=== PATIENT | male | born 1995 | race Caucasian/White ===

== ENCOUNTER 2017-03-24 21:31 | Emergency (ER) | payer OTHER ==
[2017-03-24] MEDS ORDERED: Ketorolac Tromethamine 30 MG/ML VIAL ONE (21:47)
[2017-03-24] MEDS ORDERED: Ondansetron HCl/PF 4 MG/2 ML Vial ONE (21:47)
[2017-03-24 22:08] LABS: #Basophils 0.1 thou/uL (0.0-0.2); #Eosinphils 0.1 thou/uL (0.0-0.7); #Lymphocytes 2.8 thou/uL (1.20-3.40); #Monocytes 0.7 thou/uL (0.11-0.59); #Neutrophils 7.2 thou/uL (1.40-6.50); %Basophils 0.9 % (0.0-1.0); %Lymphocytes 25.5 % (21.0-51.0); %Monocytes 6.3 % (0.0-10.0); %Neutrophils 66.3 % (42.0-75.0); Blood, Urine Large (Negative); Clarity Slightly Cloudy (Clear); Glucose, Urine (Dipstick) Negative (Negative); Hemoglobin 17.7 g/dL (14.0-18.0); Leukocyte Negative (Negative); Mean Corpuscular HGB CONC 34.5 g/dL (32.0-36.0); Mean Corpuscular Hemoglobin 30.2 pg (27.0-31.0); Mean Corpuscular Volume 87.4 fl (80.0-94.0); Mean Platelet Volume 9.4 fL (7.4-10.4); Nitrite Negative (Negative); Platelet Count 169 thou/uL (130-400); Protein, Urine (Dipstick) 100 mg/dL (Neg-Trace); RBC Distribution Width 11.6 % (11.5-14.5); Red Blood Cell (RBC) Count 5.86 mill/uL (4.70-6.10); White Blood Cell (WBC) Count 10.9 thou/uL (4.8-10.8); pH, Urine 5.5 (5.0-9.0)
[2017-03-24 22:12] LABS: Bilirubin Negative (Negative)
[2017-03-24 22:14] LABS: Bacteria/HPF 1+ HPF (None Seen); Crystals/HPF 2+ CA OXALATE HPF (Negative); Squamous Epithelial 0-3 HPF (0-3); WBC/HPF 0-3 HPF (0-3)
[2017-03-24 22:23] LABS: ALT (SGPT) 48 U/L (8-55); AST (SGOT) 25 U/L (5-34); Alkaline Phosphatase 78 U/L (40-150); Anion Gap 17 mmol/L (10-20); BUN (Urea Nitrogen) 11 mg/dL (8.9-20.6); Bilirubin, Total 0.9 mg/dL (0.2-1.2); CK (CPK) 117 U/L (30-200); Calc. Creatinine Clearance 0 mL/min (70-130); Calcium 10.2 mg/dL (7.8-10.44); Carbon Dioxide 24 mmol/L (22-29); Chloride 103 mmol/L (98-107); Estimated GFR-MDRD 61; Globulin 3.2 g/dL (2.4-3.5); Glucose 110 mg/dL (70-105); Lipase 19 U/L (8-78); Potassium 3.2 mmol/L (3.5-5.1); Protein, Total 8.2 g/dL (6.0-8.3); Sodium 141 mmol/L (136-145)
--- NOTE | 2017-03-24 22:41 | CT ---
CT ABDOMEN AND PELVIS WITHOUT CONTRAST: Date: 03-24-[address] of the abdomen and pelvis was performed for evaluation of abdominal pain, nausea, vomiting , and hematuria. Axial slices were acquired and the coronal and sagittal reconstructions were done. FINDINGS: There is a very tiny punctate calcification in the pelvis on the left side measuring 1-2 mm in size. As best as I can tell it is in the left ureter. The collecting system of the left kidney is ever sl ightly more prominent than the right. All findings point to a tiny distal ureteral calculus in the d istal left ureter. On the coronal images there is the suggestion of a single tiny punctate calcifica tion in the right kidney that is nonobstructing. The lung bases are clear. The liver, spleen, pancreas, adrenal glands, gallbladder and abdominal aor ta were unremarkable in appearance. The bowel is nondistended. The appendix appears normal. I would wonder if there might be a little bi t of diffuse wall thickening of the left colon, but the finding is inconclusive as it is not distend ed and has no contrast within it. CT of the pelvis showed no pelvic masses, fluid collections, or inflammatory changes. A large calcif ication or two on the right side of the pelvis has the appearance of phleboliths. IMPRESSION: 1. Findings suggestive of a punctate distal left ureteral calculus. There is the slightly amount of dilation of the collecting system of the left kidney. 2. At least one punctate calcification in the right kidney that is presumably an early nonobstructin g stone. POS: HOME
== END 2017-03-24 23:16 | disposition home or self-care (01) ==
LOC: BURERS 21:31
DX: N20.1 Calculus of ureter (principal)
CPT/HCPCS: 74176; 80053; 81003; 81015; 82550; 83690; 85025; 87086; 96361; 96374; 96375; J1885; J2270; J2405

== ENCOUNTER 2018-10-25 21:10 | Emergency (ER) | payer BC, OTHER, SELFPAY ==
[2018-10-25] MEDS ORDERED: Ondansetron PF 4 MG/2 ML Vial ONE (21:20)
== END 2018-10-25 21:59 | disposition home or self-care (01) ==
LOC: BURERS 21:10
DX: R11.2 Nausea with vomiting, unspecified (principal)
CPT/HCPCS: 96372; 96374; J0500; J2405

== ENCOUNTER 2019-01-20 17:42 | Emergency (ER) | payer BC ==
[2019-01-20] MEDS ORDERED: Ketorolac Tromethamine 30 MG/ML VIAL ONE (18:04)
[2019-01-20 18:21] LABS: Clarity Clear (Clear); Leukocyte Negative (Negative); Nitrite Negative (Negative); Protein, Urine (Dipstick) 30 mg/dL (Neg-Trace)
[2019-01-20 18:22] LABS: Bilirubin Negative (Negative); Blood, Urine Large (Negative); Glucose, Urine (Dipstick) Negative (Negative)
[2019-01-20 18:25] LABS: #Basophils 0.1 thou/uL (0.0-0.2); #Eosinphils 0.1 thou/uL (0.0-0.7); #Lymphocytes 2.6 thou/uL (1.20-3.40); #Monocytes 0.5 thou/uL (0.11-0.59); #Neutrophils 3.7 thou/uL (1.40-6.50); %Eosinophils 2.1 % (0.0-10.0); %Lymphocytes 36.4 % (21.0-51.0); %Monocytes 7.1 % (0.0-10.0); %Neutrophils 52.5 % (42.0-75.0); Mean Corpuscular HGB CONC 32.7 g/dL (32.0-36.0); Mean Corpuscular Hemoglobin 28.3 pg (27.0-31.0); Mean Corpuscular Volume 86.8 fL (78.0-98.0); Mean Platelet Volume 8.8 fL (7.4-10.4); Platelet Count 168 thou/uL (130-400); Red Blood Cell (RBC) Count 4.94 mill/uL (4.70-6.10)
[2019-01-20 18:25] LABS: RBC/HPF Greater than 50 HPF (0-3); WBC/HPF 0-3 HPF (0-3)
[2019-01-20 18:26] LABS: Bacteria/HPF 4+ HPF (None Seen); Squamous Epithelial 0-3 HPF (0-3)
[2019-01-20 18:26] LABS: ALT (SGPT) 38 U/L (8-55); AST (SGOT) 22 U/L (5-34); Albumin 4.2 g/dL (3.5-5.0); Alkaline Phosphatase 69 U/L (40-150); Anion Gap 11 mmol/L (10-20); BUN (Urea Nitrogen) 14 mg/dL (8.9-20.6); Bilirubin, Total 0.3 mg/dL (0.2-1.2); Calc. Creatinine Clearance 0 mL/min (70-130); Calcium 9.4 mg/dL (7.8-10.44); Carbon Dioxide 26 mmol/L (22-29); Chloride 107 mmol/L (98-107); Estimated GFR-MDRD Greater than 90; Globulin 2.9 g/dL (2.4-3.5); Glucose 118 mg/dL (70-105); Potassium 3.9 mmol/L (3.5-5.1); Protein, Total 7.1 g/dL (6.0-8.3); Sodium 140 mmol/L (136-145)
[2019-01-20] MEDS ORDERED: Morphine 4 MG/ML VIAL ONE (18:38)
[2019-01-20] MEDS ORDERED: HYDROcodone/Acetaminophen 5/325 mg Tablet ONE (18:53)
== END 2019-01-20 18:58 | disposition home or self-care (01) ==
LOC: BURERS 17:42
DX: N20.0 Calculus of kidney (principal)
CPT/HCPCS: 80053; 81003; 81015; 85025; 87086; 96374; 96375; J1885; J2270